=== PATIENT | female | born 1945 | race Caucasian/White ===

== ENCOUNTER 2017-08-26 10:54 | Observation (INO) | payer MEDICARE, BC ==
[~2017-08-26] VITALS: Ht 170.2 cm; Wt 80.9 kg
[2017-08-26] VITALS (11 sets, daily range): BP systolic 121–186; BP diastolic 50–113
[2017-08-26] MEDS ORDERED: diphenhydrAMINE 25mg capsule PO PRN (11:25)
[2017-08-26] MEDS ORDERED: LORazepam 0.5 MG tablet PO PRN (11:25)
[2017-08-26] MEDS ORDERED: LEVO125T8 PO (11:31)
[2017-08-26] MEDS ORDERED: POTA10TA15 PO (11:32)
[2017-08-26] MEDS ORDERED: METO25TA6 PO (11:34)
[2017-08-26] MEDS ORDERED: LISI40TA4 PO (11:35)
[2017-08-26] MEDS ORDERED: AMIT100T7 PO (11:36)
[2017-08-26] MEDS ORDERED: ASPI81TA52 PO (11:37)
[2017-08-26] MEDS ORDERED: MULT-933 PO (11:38)
[2017-08-26] MEDS ORDERED: CAL1TABL8 PO (11:38)
[2017-08-26] MEDS ORDERED: CHOL100046 PO (11:39)
[2017-08-26] MEDS ORDERED: HUM7525 SQ (11:40)
[2017-08-26] MEDS ORDERED: INSU100C4 SQ (11:43)
[2017-08-26] MEDS ORDERED: LANTUS SQ (11:44)
[2017-08-26] MEDS ORDERED: LEFL20TA PO (11:45)
[2017-08-26] MEDS ORDERED: METF10002 PO (11:48)
[2017-08-26] MEDS ORDERED: ATOR80TA PO (11:49)
[2017-08-26] MEDS ORDERED: CLOP75TA35 PO (11:50)
[2017-08-26] MEDS ORDERED: FURO40TA4 PO (11:51)
[2017-08-26] MEDS: normal saline 1000ml 1,000 ML IV SCH ×2 (12:11→21:25)
[2017-08-26] MEDS ORDERED: iohexol 350MG/ML 100ml bottle IV ONE ×2 (12:17→12:56)
[2017-08-26] MEDS ORDERED: midazolam 2 mg/2 ml injection ONE (12:17)
[2017-08-26] MEDS ORDERED: fentaNYL/PF 50MCG/1 ML 2ML syringe ONE (12:17)
[2017-08-26] MEDS ORDERED: LIDOcaine 1%/PF (10mg/ml) 5ml vial ONE (12:17)
[2017-08-26] MEDS ORDERED: iohexol 350 MG/ML 50ML vial IV ONE (12:17)
[2017-08-26] MEDS ORDERED: heparin 1,000unit/ml 10ml vial 10 ML ONE (12:48)
[2017-08-26] MEDS ORDERED: nitroGLYCERIN-Tridil 50MG/D5W 250 ML IV ONE (12:48)
[2017-08-26] MEDS ORDERED: hydrALAZINE 20mg/ml inj. IV ONE (12:52)
[2017-08-26] MEDS ORDERED: adenosine 90 MG/30ml kit =/or below 120kg Cath Lab IV ONE (13:08)
[2017-08-26] MEDS ORDERED: clopidogrel 300mg tablet ONE (13:33)
[2017-08-26] MEDS ORDERED: acetaminophen 325mg tablet PO PRN (14:50)
[2017-08-26] MEDS ORDERED: CLOPIDOGREL BISULFATE 300MG TAB PO ONE (14:50)
[2017-08-26] MEDS ORDERED: OXAZEpam 15mg capsule PO PRN (14:50)
[2017-08-26] MEDS ORDERED: magnesium hydroxide 30ml (MOM) UD suspension PO PRN (14:50)
[2017-08-26] MEDS ORDERED: cyclobenzaprine 10mg tablet PO PRN (14:50)
[2017-08-26] MEDS ORDERED: nitroGLYCERIN-Tridil 50MG/D5W 250 ML IV SCH ×2 (14:50→19:09)
[2017-08-26] MEDS ORDERED: proCHLORperazine 10 MG/2 ml inj IV PRN (14:50)
[2017-08-26] MEDS ORDERED: aspirin 325mg tablet PO ONE (14:55)
[2017-08-26] MEDS: lisinopril 20mg tablet PO SCH (15:47)
[2017-08-26] MEDS ORDERED: hydrALAZINE 20mg/ml inj. IV SCH (16:00)
[2017-08-26] MEDS ORDERED: hydrALAZINE 20mg/ml inj. IV PRN (16:00)
[2017-08-26] MEDS ORDERED: insulin Lispro (HumaLOG) vial - multi-dose SQ SCH (17:30)
[2017-08-26] MEDS ORDERED: HYDROcodone/acetaminophen 10/325mg tab PO PRN (19:25)
[2017-08-26] MEDS: furosemide 40mg tablet PO SCH (20:00)
[2017-08-26] MEDS: docusate sod 100mg capsule PO SCH (20:07)
[2017-08-26] MEDS ORDERED: insulin glargine (Lantus) pen - multi-dose SQ SCH (21:00)
[2017-08-26] MEDS ORDERED: atorvastatin 20mg tablet PO SCH (21:00)
[2017-08-26] MEDS ORDERED: amitryptiline 50mg tablet PO SCH (21:00)
[2017-08-27] VITALS: BP 111/50
[2017-08-27 01:00] VITALS: BP 121/52
[2017-08-27 03:00] VITALS: BP 118/49
[2017-08-27 04:00] VITALS: BP 130/52
[2017-08-27 05:30] VITALS: BP 166/62
[2017-08-27 06:13] LABS: BASOPHILS # (AUTO) 0.1 X10'3 (0-0.2); BASOPHILS % (AUTO) 0.8 % (0-1); EOSINOPHILS # (AUTO) 0.3 X10'3 (0-0.9); EOSINOPHILS % (AUTO) 3.6 % (0-6); HEMATOCRIT 35.9 % (35.0-45.0); HEMOGLOBIN 12.1 g/dl (12.0-16.0); LYMPHOCYTES % (AUTO) 10.8 % (21-51); MEAN CORPUSCULAR HGB CONC 33.7 % (33.0-36.5); MEAN PLATELET VOLUME 9.2 FL (7.4-10.4); MONOCYTES # (AUTO) 0.7 X10'3 (0-0.9); MONOCYTES % (AUTO) 7.3 % (2-12); NEUTROPHILS # (AUTO) 7.6 X10'3 (1.8-7.7); NEUTROPHILS % (AUTO) 77.5 % (42-75); PLATELET COUNT 182 X10'3 (140-440); RED BLOOD COUNT 4.17 X10'6 (4.20-5.60); RED CELL DISTRIBUTION WIDTH 14.4 % (11.5-14.5); WHITE BLOOD COUNT 9.8 X10'3 (4.5-11.0)
[2017-08-27 06:59] LABS: ALBUMIN 3.1 G/DL (3.4-5.0); ANION GAP 8 (8-16); BLOOD UREA NITROGEN 15 MG/DL (7-18); CALCIUM 8.8 MG/DL (8.5-10.1); CHLORIDE 107 MMOL/L (99-107); GLUCOSE 164 MG/DL (70-104); POTASSIUM 3.3 MMOL/L (3.5-5.1); SODIUM 144 MMOL/L (135-145); TOTAL CARBON DIOXIDE 28.6 MMOL/L (24-32); eGFR 55 ML/MIN
[2017-08-27 07:00] VITALS: BP 152/67
[2017-08-27] MEDS ORDERED: METF10002 PO (07:14)
[2017-08-27] MEDS ORDERED: ASPI-1 PO (07:14)
[2017-08-27] MEDS ORDERED: potassium Cl 20 mEq SR tablet PO STA (07:15)
[2017-08-27] MEDS: lisinopril 20mg tablet PO SCH (07:32)
[2017-08-27] MEDS: furosemide 40mg tablet PO SCH (07:32)
[2017-08-27] MEDS: docusate sod 100mg capsule PO SCH (07:33)
[2017-08-27] MEDS ORDERED: levoTHYROXINE 125mcg tablet PO SCH (08:00)
[2017-08-27] MEDS ORDERED: potassium chloride 10mEq ER tablet PO SCH (08:00)
[2017-08-27] MEDS ORDERED: multivitamins, therapeutics tablet PO SCH (08:00)
[2017-08-27] MEDS ORDERED: leflunomide 20mg tablet PO SCH (08:00)
[2017-08-27] MEDS ORDERED: vitamin D (cholecalciferol) 1,000 unit tablet PO SCH (08:00)
[2017-08-27] MEDS ORDERED: aspirin 81mg tablet.DR PO SCH (08:00)
[2017-08-27] MEDS ORDERED: clopidogrel 75mg tablet PO SCH ×2 (08:00)
[2017-08-27] MEDS ORDERED: calcium carbonate/vitamin D3 tablet PO SCH (08:00)
[2017-08-27] MEDS ORDERED: non-formulary drug (Insulin Aspart (Novolog) 1 UNITS) SQ SCH (08:00)
[2017-08-27] MEDS ORDERED: metoprolol tartrate 25mg tablet PO SCH (08:00)
[2017-08-27] MEDS ORDERED: aspirin 325mg tablet PO SCH (08:30)
[2017-08-28] MEDS ORDERED: metFORMIN 500mg tablet PO SCH (20:00)
== END 2017-08-27 08:35 | disposition home or self-care (01) ==
LOC: SSTAY O 10:54 → PCU 3S 20:06
PROVIDERS: ADMIT Internal Medicine Cardiovascular Disease; ATTEND Internal Medicine Cardiovascular Disease
DX: I25.10 Atherosclerotic heart disease of native coronary artery without angina pectoris (principal); E78.5 Hyperlipidemia, unspecified; I10 Essential (primary) hypertension; E11.9 Type 2 diabetes mellitus without complications; R94.39 Abnormal result of other cardiovascular function study
CPT/HCPCS: 36415; 80048; 82948; 83880; 85025; 85347; 93005; 93458; 93571; 96365; 96366; 96372; 96375; 96376; A6257; C1725; C1760; C1769; C1874; C1894; C9600; G0378; J0153; J0360; J1644; J2001; J2250; J3010; J3490; J7030; Q0163; Q9967; 99152; 99153; A4620; J1815

== ENCOUNTER 2019-10-07 12:26 | Outpatient (CLI) | payer MEDICARE, BC ==
[~2019-10-07 12:26] MED LIST: AMIT100T7 PO; ASPI-1 PO; ATOR80TA PO; CAL1TABL8 PO; CHOL100046 PO; CLOP75TA35 PO; FURO40TA4 PO; HUM7525 SQ; INSU100C4 SQ; LANTUS SQ; LEFL20TA PO; LEVO125T8 PO; LISI40TA4 PO; METF-438 PO; METO25TA6 PO; MULT-933 PO; POTA10TA15 PO
[2019-10-07 13:32] LABS: CHOLESTEROL 287 MG/DL (0-200); HDL CHOLESTEROL 22 MG/DL (35-60); LDL CHOLESTEROL 52 MG/DL (50-100)
[2019-10-07 13:33] LABS: TRIGLYCERIDES 1727 MG/DL (20-135)
== END 2019-10-07 23:59 | disposition home or self-care (01) ==
LOC: LAB 12:26
PROVIDERS: ATTEND General Practice
DX: I10 Essential (primary) hypertension (principal); E11.59 Type 2 diabetes mellitus with other circulatory complications; E03.9 Hypothyroidism, unspecified
CPT/HCPCS: 36415; 80061

== ENCOUNTER 2022-01-06 11:22 | Emergency (ER) | payer MEDICARE, BC ==
[~2022-01-06] VITALS: Ht 170.2 cm; Wt 100.0 kg
[~2022-01-06 11:22] MED LIST changes: -ASPI-1 PO; +ASPI-1071 PO; -ATOR80TA PO; -CAL1TABL8 PO; +CLON0.2T PO; -CLOP75TA35 PO; +DOCU-148 PO; +DULO20CA18 PO; -INSU100C4 SQ; -LEVO125T8 PO; +LEVO25TA7 PO; +LISI40TA13 PO; -LISI40TA4 PO; +LORA10TA7 PO; -METF-438 PO; +METO-384 PO; -METO25TA6 PO; -MULT-933 PO; +POLY17PO59 PO; -POTA10TA15 PO; +POTA8TAB58 PO
[2022-01-06 11:24] VITALS: BP 177/97
[2022-01-06] MEDS ORDERED: aspirin 81mg tab.chew PO ONE (11:30)
--- NOTE | 2022-01-06 11:35 | NUR ---
dr. rodriguez does not want iv at this time, wants troponin 1 only
[2022-01-06 12:03] LABS: APTT 28 SECONDS (22-32)
[2022-01-06 12:05] LABS: BASOPHILS # (AUTO) 0.2 X10'3 (0-0.2); BASOPHILS % (AUTO) 1.8 % (0-1); EOSINOPHILS # (AUTO) 0.4 X10'3 (0-0.9); EOSINOPHILS % (AUTO) 3.1 % (0-6); HEMATOCRIT 37.5 % (35.0-45.0); HEMOGLOBIN 12.1 g/dl (12.0-16.0); LYMPHOCYTES # (AUTO) 2.1 X10'3 (1.1-4.8); MEAN CORPUSCULAR HEMOGLOBIN 25.9 PG (27.0-31.0); MEAN CORPUSCULAR HGB CONC 32.3 g/dL (33.0-36.5); MEAN CORPUSCULAR VOLUME 80.3 FL (78-98); MEAN PLATELET VOLUME 8.1 FL (7.4-10.4); MONOCYTES % (AUTO) 8.6 % (2-12); NEUTROPHILS # (AUTO) 7.9 X10'3 (1.8-7.7); NEUTROPHILS % (AUTO) 68.5 % (42-75); PLATELET COUNT 305 X10'3 (140-440); RED BLOOD COUNT 4.67 X10'6 (4.20-5.60); RED CELL DISTRIBUTION WIDTH 16.9 % (11.5-14.5); WHITE BLOOD COUNT 11.5 X10'3 (4.5-11.0)
[2022-01-06 12:13] LABS: ALANINE AMINOTRANSFERASE 30 U/L (12-78); ALBUMIN 2.9 G/DL (3.4-5.0); ALBUMIN/GLOBULIN RATIO 0.6 (1.1-1.5); ALKALINE PHOSPHATASE 212 IU/L (46-116); ANION GAP 5 (8-16); ASPARTATE AMINO TRANSFERASE 41 U/L (10-37); BILIRUBIN,TOTAL 0.3 MG/DL (0.1-1.0); BLOOD UREA NITROGEN 27 MG/DL (7-18); BUN/CREATININE RATIO 14.8 (6.6-38.0); CALCIUM 8.9 MG/DL (8.5-10.1); CHLORIDE 95 MMOL/L (99-107); CREATININE 1.82 MG/DL (0.40-0.90); GLUCOSE 207 MG/DL (70-104); LIPASE < 50 U/L (73-393); MAGNESIUM 1.7 MG/DL (1.5-2.4); SODIUM 137 MMOL/L (135-145); TOTAL CARBON DIOXIDE 37.1 MMOL/L (24-32); TOTAL PROTEIN 7.4 G/DL (6.4-8.2); eGFR 27 ML/MIN
[2022-01-06 12:20] LABS: POTASSIUM 2.8 MMOL/L (3.5-5.1)
[2022-01-06] MEDS ORDERED: potassium Cl 20 mEq SR tablet PO STA (13:41)
[2022-01-06] MEDS ORDERED: potassium CL 10mEq/100ml bag 100 ML IV ONE (13:45)
--- NOTE | 2022-01-06 14:41 | NUR ---
TC FROM STEP-DAUGHTER, LUCIAN. INFORMED OF DC STATUS. LUCIAN STATES SHE IS UNABLE TO CUFF KNITTER PATIENT UNTIL AFTER 1700 BECAUSE SHE IS AT WORK RIGHT NOW. PATIENT IS IN ROOM #1, AWAITING DISCHARGE. PATIENT INFORMED THAT WE ARE WAITING FOR HER TRANSPORTATION HOME.
== END 2022-01-06 17:32 | disposition home or self-care (01) ==
LOC: ER 11:22
DX: R07.89 Other chest pain (principal); F03.90 Unspecified dementia, unspecified severity, without behavioral disturbance, psychotic disturbance, mood disturbance, and anxiety; I11.0 Hypertensive heart disease with heart failure; I50.9 Heart failure, unspecified; E78.00 Pure hypercholesterolemia, unspecified; E11.9 Type 2 diabetes mellitus without complications; Z87.81 Personal history of (healed) traumatic fracture; Z88.1 Allergy status to other antibiotic agents; Z79.82 Long term (current) use of aspirin; Z79.899 Other long term (current) drug therapy; Z79.4 Long term (current) use of insulin
CPT/HCPCS: 36415; 71045; 80053; 83690; 83735; 83880; 84484; 85025; 85610; 85730; 93005; 99285